=== PATIENT | male | born 1995 | race African-American/Black ===

== ENCOUNTER 2018-07-07 16:51 | Emergency (ER) | payer SELFPAY ==
[~2018-07-07] VITALS: Ht 188 cm; Wt 108.0 kg
[2018-07-07] MEDS ORDERED: LORAZEPAM 1MG TABLET PO ONE (17:00)
[2018-07-07] MEDS ORDERED: MORPHINE SULFATE 10 MG/ML CPJ IM ONE (17:00)
[2018-07-07 18:34] VITALS: BP 150/86
== END 2018-07-07 19:00 | disposition home or self-care (01) ==
LOC: ER 16:51
DX: S43.014A Anterior dislocation of right humerus, initial encounter (principal); X58.XXXA Exposure to other specified factors, initial encounter; Y93.89 Activity, other specified; Y92.89 Other specified places as the place of occurrence of the external cause; Y99.8 Other external cause status
CPT/HCPCS: 23650; 73030; 96372; 99284; J2270